=== PATIENT | male | born 1935 | race Caucasian/White ===

== ENCOUNTER 2017-07-03 21:31 | Emergency (ER) | payer OTHER, MEDICARE ==
[~2017-07-03] VITALS: Ht 167.6 cm; Wt 83.9 kg
[~2017-07-03 21:31] MED LIST: ASPIR 8181 MG PO; BYSTOLIC 5MG5 MG PO; COZAAR 100MG T100 MG PO; FENOFIBRATE54 MG PO; GLYBURIDE5 MG PO; LABETALOL HYDR100 MG PO; METFORMIN HCL500 MG PO; METFORMIN500 MG PO; METOPROLOL SUCC25 MG PO
[2017-07-03 22:03] LABS: ABSOLUTE BASOPHIL COUNT 0 /CUMM (0.0-0.2); ABSOLUTE EOSINOPHIL COUNT 0.2 /CUMM (0.0-0.7); ABSOLUTE GRANULOCYTE CT 3.5 /CUMM (1.4-6.5); ABSOLUTE LYMPH COUNT 1.6 /CUMM (1.2-3.4); ABSOLUTE MONOCYTE COUNT 0.6 /CUMM (0.10-0.60); BASOPHIL % 0.4 % (0.0-2.0); EOSINOPHIL % 3.6 % (0-5); HEMATOCRIT 41.5 % (42-52); MEAN CORPUSCULAR HGB 29.6 PG (27.0-31.0); MEAN CORPUSCULAR VOLUME 87.1 FL (80.0-94.0); MEAN PLATELET VOLUME 7.8 FL (7.4-10.4); PLATELET COUNT 166 /CUMM (130-400); RED BLOOD CELL CT 4.76 /CUMM (4.70-6.10); WHITE BLOOD CELL COUNT 5.9 /CUMM (4.8-10.8)
--- NOTE | 2017-07-03 22:50 | ED GI/GU/ABDOMINAL COMPLAINT ---
History of Present Illness General Chief Complaint: General Adult Stated Complaint: LLQ PAIN AND SOB SINCE EATING DINNER TONIGHT Source: patient, family, old records Exam Limitations: no limitations Vital Signs & Intake/Output Vital Signs & Intake/Output Vital Signs Date Time Temp Pulse Resp B/P B/P Pulse O2 O2 Flow FiO2 Mean Ox Delivery Rate 07/03 2252 104 16 107/54 97 Room Air 07/03 2157 96.7 84 20 159/78 96 Room Air ED Intake and Output 07/04 0000 07/03 1200 Intake Total Output Total Balance Patient 185 lb Weight Allergies Coded Allergies: NO KNOWN ALLERGIES (10/02/14) Reconcile Medications Fenofibrate 54 MG TABLET 2 PO QPM UNKNOWN (Reported) Glyburide 2.5 MG TABLET 2 PO BID diabetes (Reported) LABETALOL HCL (Labetalol Hydrochloride) 100 MG TAB 1 TAB PO BID htn Losartan (Cozaar) 100 MG TABLET 1 TAB PO DAILY BLOOD PRESSURE (Reported) METFORMIN HCL (Metformin) 500 MG TABLET 2 PO QPM DIABETES (Reported) Metformin Hydrochloride (Metformin HCl) 500 MG TAB 1 TAB PO QAM DIABETES ( Reported) Metoprolol Succinate 25 MG TAB.ER.24H 2 TAB PO DAILY HEART (Reported) Triage Note: PT TO ED C/O LLQ/LEFT SIDE PAIN ANS FEELING SOB SINCE EATING DINNER TONIGHT. "IT FELT LIKE GAS, BUT IT WASN'T GAS" AT [facility] FOR DINNER, DENIES CHEESE. "I'M HAVING AGINA TONIGHT" NO SL NITRO AT HOME. POINTS TO ESOPHAGUS AND EPIGASTRIC AREA "I SEEM TO GET IT WHEN I HAVE SPAGHETTI" Triage Nurses Notes Reviewed? yes Onset: Abrupt Duration: hour(s): (3), better, constant Timing: recent history Quality/Severity: aching, burning, cramping, moderate, sharpness Severity Numbers: 7 Location: left lower quadrant Radiation: no radiation Activities at Onset: eating (DINNER) Prior Abdominal Problems: none No Modifying Factors: none Associated Symptoms: DENIES HPI: 82-year-old male with history of AAA repair hypertension diabetes presents to the ER for evaluation complaining of left-sided abdominal pain that came on since eating dinner this evening. Contrary to triage note the patient denies any shortness of breath to myself. He denies any chest pain fevers chills. No urinary urgency frequency dysuria. The patient denies chest pain back pain. No history of similar symptoms in the past. He states that his blood sugars she has been checking regularly has been no higher than 140. No recent change in his medication. No black or bloody stools no nausea vomiting. (Bob Aguilera) Past History Travel History Traveled to [place] past 21 day No Medical History Any Pertinent Medical History? see below for history Neurological: NONE EENT: NONE Cardiovascular: aortic aneurysm, hypertension, hyperlipidemia Respiratory: NONE Gastrointestinal: peptic ulcer disease Hepatic: NONE Renal: NONE Musculoskeletal: NONE Psychiatric: NONE Endocrine: diabetes Blood Disorders: NONE Cancer(s): NONE ELECTROENCEPHALOGRAM TECHNOLOGIST/Reproductive: NONE History of MRSA: No History of VRE: No History of CDIFF: No Surgical History Surgical History: hernia repair-inguinal, AAA REPAIR. Psychosocial History Who do you live with Spouse Services at Home None What is your primary language Kinyarwanda Tobacco Use: Quit >30 days ago ETOH Use: denies use Illicit Drug Use: denies illicit drug use Family History Hx Contributory? No (Bob Aguilera) Review of Systems Review of Systems Constitutional: Reports: see HPI. Comments Review of systems: See HPI, All other systems negative. Constitutional, no chills no fever, HEENT: no sore throat no congestion, no ear pain Cardiovascular: No chest pain , no palpitation Skin: no rashes, no change in skin Respiratory: No dyspnea no cough no sputum GI: No nausea no vomiting, no diarrhea, : No dysuria No hematuria, no frequency Muscle skeletal: No joint pain, no back pain, Neurologic: , no headache Heme/endocrine: No bruising (Bob Aguilera) Physical Exam Physical Exam General Appearance: well developed/nourished, no apparent distress, alert, awake , comfortable Gastrointestinal: soft Comments: Well-developed well-nourished person in no acute distress HEENT: Normal EENT exam; PERRL, EOMI, HEAD is atraumatic. moist mucous membranes. Neck: Supple, normal range of motion Back: Nontender, no CVA tenderness. Full range of motion Cardiovascular: Regular rate and rhythms no murmurs Respiratory: No respiratory distress. Patient speaking in full complete sentences. Breath sounds clear to auscultation bilaterally: NO W/R/R Abdomen: Soft, nontender nondistended, no appreciable organomegaly. Normal bowel sounds. No rebound/guarding, No ascites. Extremity: No edema, full range of motion of extremities Neuro: Alert oriented x3, motor sensory normal, There were no obvious focal neurologic abnormalities. Skin: No appreciable rash on exposed skin, skin is warm and dry. Psych: Mood and affect is normal, memory and judgment is normal. Core Measures ACS in differential dx? Yes Sepsis Present: No Sepsis Focused Exam Completed? No (Nanci MCCLAIN,Bob) Progress Differential Diagnosis: AMI, appendicitis, biliary colic, bowel obstruction, colon cancer, cholecystitis, diverticulitis, gastritis, hepatitis, inflamm bowel dis, pancreatitis, peptic ulcer, PUD/GERD, pyelonephritis, SBO, UTI/pyelo Plan of Care: Orders Procedure Date/time Status LACTIC ACID 07/04 33 Complete TROPONIN LEVEL 07/04 29 Complete EKG 07/04 29 Active CULTURE,URINE 07/05 15 Active URINALYSIS 07/05 15 Complete Add-on Test (ER Only) 07/04 2203 Active TROPONIN LEVEL 07/04 2151 Complete LIPASE 07/03 2133 Complete LACTIC ACID 07/03 2133 Complete COMPREHENSIVE METABOLIC PANEL 07/03 2133 Complete CBC WITHOUT DIFFERENTIAL 07/03 2133 Complete EKG 07/03 2132 Active Laboratory Tests 07/04/17 0120: Troponin I < 0.01 07/04/17 0120: Lactic Acid 2.5 H 07/04/17 0017: Urine Color YEL, Urine Clarity HAZY H, Urine pH 6.0, Ur Specific [place] 1.010, Urine Protein NEG, Urine Ketones NEG, Urine Nitrite NEG, Urine Bilirubin NEG, Urine Urobilinogen 0.2, Ur Leukocyte Esterase NEG, Ur Microscopic SEDIMENT EXAMINED, Urine RBC 15-25 H, Urine WBC RARE, Urine Crystals 1+ UR AC H, Urine Bacteria FEW H, Urine Mucus FEW, Urine Hemoglobin LARGE H, Urine Glucose >= 1000 H 07/03/172151: Anion Gap 13, Estimated GFR > 60, BUN/Creatinine Ratio 26.0 H, Glucose 245 H, Lactic Acid 3.1 H, Calcium 9.3, Total Bilirubin 0.5, AST 26, ALT 39, Alkaline Phosphatase 87, Troponin I < 0.01, Total Protein 7.3, Albumin 4.6, Globulin 2.7, Albumin/Globulin Ratio 1.7, Lipase 187, CBC w Diff NO MAN DIFF REQ, RBC 4.76, MCV 87.1, MCH 29.6, MCHC 34.0, RDW 13.0, MPV 7.8, Gran % 59.0, Lymphocytes % 27.4, Monocytes % 9.6 H, Eosinophils % 3.6, Basophils % 0.4, Absolute Granulocytes 3.5, Absolute Lymphocytes 1.6, Absolute Monocytes 0.6, Absolute Eosinophils 0.2, Absolute Basophils 0 Microbiology 07/04 0017 URINE ROUT: Urine Culture - RECD Labs ordered old records reviewed CAT scan ordered 2350 discussed with the patient and family His CAT scan results-he has no urinary complaints he will be able to provide a sample IV fluids are running. Patient reports improvement symptoms this time denies any pain. Case discussed with Dr. Robison who agrees with plan -we'll repeat a troponin and lactic acid at 12:30 0050 patient resting in no acute distress pending repeat lactic acid troponin EKG he denies any pain at this time I discussed with him once again is CAT scan findings and urinalysis he denies history of kidney stones in the past, advised need for follow-up with urologist Dr. Roche. 100 case discussed with and signed out to Dr. Robison pending repeat labs Diagnostic Imaging: Viewed by Me: CT Scan. Discussed w/RAD: CT Scan. Radiology Impression: PATIENT: ALEXEI WAITE PRESENT AGE: 82 PATIENT ACCOUNT NO: [id number] : 35 LOCATION: [facility] ORDERING PHYSICIAN: Bob MCCLAIN SERVICE DATE: 07/03/17 EXAM TYPE: CAT - CT ABD & PELVIS W IV CONTRAST EXAMINATION: CT ABDOMEN AND PELVIS WITH CONTRAST CLINICAL INFORMATION: Left lower quadrant abdominal pain. Nausea and vomiting. COMPARISON: CT scan abdomen pelvis 07/08/2013 TECHNIQUE: Multidetector volumetric imaging was performed of the abdomen and pelvis following IV administration of 95 mL of Optiray 320 intravenous contrast. Sagittal and coronal reformatted images were obtained on the technologist's workstation. DLP: 482.80 mGy-cm FINDINGS: LUNG BASES: The visualized lung bases are unremarkable. LIVER, GALLBLADDER, AND BILIARY TREE: There is diffuse low attenuation of liver parenchyma due to fatty change. There is no focal liver lesion. There is no intrahepatic bile duct dilatation. The gallbladder is unremarkable with no evidence of radiopaque gallstones, gallbladder wall thickening, or obvious pericholecystic inflammatory changes. PANCREAS: Unremarkable. SPLEEN: Unremarkable. ADRENAL GLANDS: Unremarkable. KIDNEYS AND URETERS: There is hypodensity in the right and left renal pelvis. A hypodensity in the right kidney is at the lower pole and is unchanged since CAT scan of 09/24/2013 consistent with a parapelvic cyst. There is no stone in the right kidney and no hydronephrosis of the right kidney. On the left there is mild dilatation of renal pelvis and calyces to the ureteropelvic junction. There is no hydroureter. There is a subtle amount of edema and fluid around the left kidney and the left ureter. There is no renal or ureteral calculus. BLADDER: Unremarkable. GASTROINTESTINAL TRACT: There is diverticulosis of left colon sigmoid. No diverticulitis. There is no acute change of the bowel. No bowel obstruction. No bowel wall thickening or edema. Moderate volume of stool throughout the colon. The appendix is not seen. There is no inflammation the mesentery and right lower quadrant. The small bowel loops are unremarkable. ABDOMINAL WALL: There is bilateral fat-containing inguinal hernia. On the right side measures 1.6 cm. On the left side measures 3 cm. LYMPH NODES: Normal. VASCULAR: There is been placement of an aortic bifemoral stent graft in the distal aortic aneurysm. No evidence for aneurysmal leak. 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 There is mild hydronephrosis of left kidney with edema in the perinephric fat around the left ureter there is no dilatation of the ureter and there is no renal or ureteral calculus. 2. There is diverticulosis of the left colon sigmoid but no diverticulitis. No acute change of the bowel. DICTATED BY: Stevo Varma MD DATE/TIME DICTATED:07/03/172333 APARTMENT RENTAL AGENT:YONATHAN DATE/TIME TRANSCRIBED:07/03/172333 CONFIDENTIAL, DO NOT COPY WITHOUT APPROPRIATE AUTHORIZATION. <Electronically signed in Other Vendor System> SIGNED BY: Stevo Varma MD 07/03/17 8924 Initial ED EKG: normal axis, normal sinus rhythm, nonspecific ST T wave chg Prior EKG: unchanged Hand-Off Endorsed To: Enriqueta STREETER,Joshua Marx Endorsed Time: 99 Pending: EKG, labs (Bob Aguilera) Departure Departure Disposition: HOME OR SELF CARE Condition: Stable Clinical Impression Primary Impression: Abdominal pain Secondary Impressions: Kidney stone Referrals: Sonia STREETER,Luis Manuel Marx (PCP/Family) Nilesh Roche MD Additional Instructions: Follow-up with urologist dr roche as well as your primary care physician tomorrow. [place] diet clear liquids and advance as tolerated.. return with any concerns Departure Forms: Customer Survey General Discharge Information (Bob Aguilera) PA/PIE DOUGH ROLLER Co-Sign Statement Statement: ED Attending supervision documentation- [x] I saw and evaluated the patient. I have also reviewed all the pertinent lab results and diagnostic results. I agree with the findings and the plan of care as documented in the PA's/PIE DOUGH ROLLER's documentation. pt feels well in ED at discharge.... follow up lactate is 2.5... to my exam he has a comletely nontender abdomen. ct scan and labs otherwise benign... i discussed this at great length with patient. He is feeling well, without pain, nausea, vomiting. He would like to go home. I encouraged close follow up. His presentation is most consistent with a passed kidney stone. [] I have reviewed the ED Record and agree with the PA's/PIE DOUGH ROLLER's documentation. [] Additions or exceptions (if any) to the PAs/PIE DOUGH ROLLER's note and plan are summarized below: [] (Enriqueta STREETER,Joshua Marx)
--- NOTE | 2017-07-03 23:45 | CT SCAN REPORT ---
EXAMINATION: CT ABDOMEN AND PELVIS WITH CONTRAST CLINICAL INFORMATION: Left lower quadrant abdominal pain. Nausea and vomiting. COMPARISON: CT scan abdomen pelvis 07/08/2013 TECHNIQUE: Multidetector volumetric imaging was performed of the abdomen and pelvis following IV administration of 95 mL of Optiray 320 intravenous contrast. Sagittal and coronal reformatted images were obtained on the technologist's workstation. DLP: 482.80 mGy-cm FINDINGS: LUNG BASES: The visualized lung bases are unremarkable. LIVER, GALLBLADDER, AND BILIARY TREE: There is diffuse low attenuation of liver parenchyma due to fatty change. There is no focal liver lesion. There is no intrahepatic bile duct dilatation. The gallbladder is unremarkable with no evidence of radiopaque gallstones, gallbladder wall thickening, or obvious pericholecystic inflammatory changes. PANCREAS: Unremarkable. SPLEEN: Unremarkable. ADRENAL GLANDS: Unremarkable. KIDNEYS AND URETERS: There is hypodensity in the right and left renal pelvis. A hypodensity in the right kidney is at the lower pole and is unchanged since CAT scan of 09/24/2013 consistent with a parapelvic cyst. There is no stone in the right kidney and no hydronephrosis of the right kidney. On the left there is mild dilatation of renal pelvis and calyces to the ureteropelvic junction. There is no hydroureter. There is a subtle amount of edema and fluid around the left kidney and the left ureter. There is no renal or ureteral calculus. BLADDER: Unremarkable. GASTROINTESTINAL TRACT: There is diverticulosis of left colon sigmoid. No diverticulitis. There is no acute change of the bowel. No bowel obstruction. No bowel wall thickening or edema. Moderate volume of stool throughout the colon. The appendix is not seen. There is no inflammation the mesentery and right lower quadrant. The small bowel loops are unremarkable. ABDOMINAL WALL: There is bilateral fat-containing inguinal hernia. On the right side measures 1.6 cm. On the left side measures 3 cm. LYMPH NODES: Normal. VASCULAR: There is been placement of an aortic bifemoral stent graft in the distal aortic aneurysm. No evidence for aneurysmal leak. 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 There is mild hydronephrosis of left kidney with edema in the perinephric fat around the left ureter there is no dilatation of the ureter and there is no renal or ureteral calculus. 2. There is diverticulosis of the left colon sigmoid but no diverticulitis. No acute change of the bowel.
[2017-07-04 02:20] VITALS: BP 109/58
[2017-07-05] MEDS ORDERED: AMLODIPINE BESY10 M1 PO (20:06)
[2017-07-05] MEDS ORDERED: TIMOLOL MALEATE5 M4 OPH (20:09)
[2017-07-05] MEDS ORDERED: GLYBURIDE2.5 M1 PO (20:10)
[2017-07-05] MEDS ORDERED: AMARYL1 M1 PO (20:19)
== END 2017-07-04 02:20 ==
LOC: ERH 21:31
PROVIDERS: Physician Assistant Medical
DX: N20.0 Calculus of kidney (principal)
CPT/HCPCS: 74177; 81001; 87086; 93005; 93010; 96374; 96375; J0131

== ENCOUNTER 2017-07-05 13:17 | Emergency (ER) | payer OTHER, MEDICARE ==
[~2017-07-05] VITALS: Ht 168.9 cm; Wt 83.9 kg
[2017-07-05 14:08] LABS: BASOPHIL % 0.3 % (0.0-2.0)
[2017-07-05 14:35] LABS: ABSOLUTE BASOPHIL COUNT 0 /CUMM (0.0-0.2); ABSOLUTE EOSINOPHIL COUNT 0.2 /CUMM (0.0-0.7); ABSOLUTE LYMPH COUNT 1.4 /CUMM (1.2-3.4); ABSOLUTE MONOCYTE COUNT 0.6 /CUMM (0.10-0.60); EOSINOPHIL % 3.1 % (0-5); GRANULOCYTE % 68.7 % (42.2-75.2); MEAN CORPUSCULAR HGB 29.3 PG (27.0-31.0); MEAN CORPUSCULAR HGB CONC 33.3 G/DL (33.0-37.0); MEAN CORPUSCULAR VOLUME 88.1 FL (80.0-94.0); MEAN PLATELET VOLUME 8.1 FL (7.4-10.4); PLATELET COUNT 182 /CUMM (130-400); RED BLOOD CELL CT 4.89 /CUMM (4.70-6.10); WHITE BLOOD CELL COUNT 7.3 /CUMM (4.8-10.8)
--- NOTE | 2017-07-05 19:21 | ED GI/GU/ABDOMINAL COMPLAINT ---
History of Present Illness General Chief Complaint: General Adult Stated Complaint: LOWER BACK PAIN/SOB Source: patient Exam Limitations: no limitations Vital Signs & Intake/Output Vital Signs & Intake/Output Vital Signs Date Time Temp Pulse Resp B/P B/P Pulse O2 O2 Flow FiO2 Mean Ox Delivery Rate 07/05 2144 98.8 67 16 166/90 95 Room Air 07/05 1952 98.0 68 18 168/70 97 Room Air 07/05 1853 Room Air 07/05 1607 97.5 71 20 168/91 97 Room Air 07/05 1343 96.0 70 18 166/84 96 Room Air Room Air ED Intake and Output 07/06 0000 07/05 1200 Intake Total Output Total Balance Patient 185 lb Weight Weight Reported by Patient Measurement Method Allergies Coded Allergies: NO KNOWN ALLERGIES (10/02/14) Triage Note: PT TO ED WITH C/O LEFT FLANK PAIN, SEEN HERE FOR THE SAME 2 DAYS AGO, DX WITH KIDNEY STONE "THEY SAID I PASSED IT, BUT THE PAIN IS WORSE". Triage Nurses Notes Reviewed? yes Onset: Abrupt Duration: day(s): (2-3), changing over time, continues in ED, getting worse Timing: single episode today Quality/Severity: dullness, fullness Severity Numbers: 8 Location: left flank, left lower quadrant Radiation: LLQ Activities at Onset: none Prior Abdominal Problems: similar symptoms Past Sexual History: Unobtainable at this time No Modifying Factors: none Modifying Factors: Worsens With: movement, palpation. Associated Symptoms: abdominal pain, nausea/vomiting HPI: 82-year-old male past medical history of aortic aneurysm, hypertension, diabetes , kidney stones presents for evaluation of left flank pain. Patient states symptoms are present for the past 2-3 days. He was seen in the ER last night and was told that he may have passed a kidney stone. Patient states that his pain is significantly improved so he was discharged and the pain started again today. The pain is located in the left flank radiating to the left lower quadrant. Described as fullness and dullness. Worse with palpation and movement. Associated with nausea no vomiting. No fevers no difficulty urinating no chest pain shortness of breath or fever. He is not taking any medicine for the symptoms currently. (John MCCLAIN,Malick) Reconcile Medications Amlodipine Besylate 10 MG TABLET 10 MG PO DAILY HTN (Reported) Fenofibrate 54 MG TABLET 2 PO QPM UNKNOWN (Reported) Glimepiride (Amaryl) 1 MG TABLET 2 MG PO BID DIEBETIES (Reported) Glyburide 2.5 MG TABLET 2 PO BID diabetes (Reported) Glyburide 2.5 MG TABLET 2 MG PO BID DIABETES (Reported) LABETALOL HCL (Labetalol Hydrochloride) 100 MG TAB 1 TAB PO BID htn Losartan (Cozaar) 100 MG TABLET 1 TAB PO DAILY BLOOD PRESSURE (Reported) METFORMIN HCL (Metformin) 500 MG TABLET 2 PO QPM DIABETES (Reported) Metformin Hydrochloride (Metformin HCl) 500 MG TAB 1 TAB PO QAM DIABETES ( Reported) Metoprolol Succinate 25 MG TAB.ER.24H 2 TAB PO DAILY HEART (Reported) Timolol Maleate 0.5 % DROPS (Unknown Dose) OPH 1 DROP GLAUCOMA (Reported) (Enriqueta STREETER,Joshua Marx) Past History Travel History Traveled to [place] past 21 day No Medical History Any Pertinent Medical History? see below for history Neurological: NONE EENT: NONE Cardiovascular: aortic aneurysm, hypertension, hyperlipidemia Respiratory: NONE Gastrointestinal: peptic ulcer disease Hepatic: NONE Renal: KIDNEY STONES Musculoskeletal: NONE Psychiatric: NONE Endocrine: diabetes Blood Disorders: NONE Cancer(s): NONE STATION SUPERINTENDENT/Reproductive: NONE History of MRSA: No History of VRE: No History of CDIFF: No Surgical History Surgical History: hernia repair-inguinal, AAA REPAIR. Psychosocial History Who do you live with Spouse Services at Home None What is your primary language Montenegrin Tobacco Use: Never used ETOH Use: denies use Illicit Drug Use: denies illicit drug use Family History Hx Contributory? No (Malick Puente) Review of Systems Review of Systems Constitutional: Reports: no symptoms. EENTM: Reports: no symptoms. Respiratory: Reports: no symptoms. Cardiovascular: Reports: no symptoms. GI: Reports: see HPI, abdominal pain, nausea. Genitourinary: Reports: no symptoms. Musculoskeletal: Reports: no symptoms. Skin: Reports: no symptoms. Neurological/Psychological: Reports: no symptoms. Hematologic/Endocrine: Reports: no symptoms. Immunologic/Allergic: Reports: no symptoms. All Other Systems: Reviewed and Negative (Malick Puente) Physical Exam Physical Exam General Appearance: well developed/nourished, no apparent distress, alert, awake Head: atraumatic, normal appearance Eyes: Bilateral: normal appearance, PERRL, EOMI. Ears, Nose, Throat, Mouth: hearing grossly normal, moist mucous membrane Neck: normal inspection, supple, full range of motion Respiratory: normal breath sounds, chest non-tender, no respiratory distress, lungs clear Cardiovascular: regular rate/rhythm, normal peripheral pulses Peripheral Pulses: 2+ radial (R), 2+ radial (L) Gastrointestinal: normal bowel sounds, soft, no organomegaly, tenderness (LEFT FLANK ) Back: normal inspection, normal range of motion, no vertebral tenderness, NO CVAT Extremities: normal range of motion Neurologic/Psych: no motor/sensory deficits, awake, alert, oriented x 3, normal gait Skin: intact, normal color, warm/dry Core Measures ACS in differential dx? No Sepsis Present: No Sepsis Focused Exam Completed? No (John MCCLAIN,Mailck) Progress Differential Diagnosis: AAA, AMI, appendicitis, biliary colic, bowel obstruction , colon cancer, cholecystitis, diverticulitis, gastritis, inflamm bowel dis, pancreatitis, peptic ulcer, PUD/GERD, pyelonephritis, SBO, ureterolithiasis, urinary retention, urethritis, UTI/pyelo Plan of Care: Orders Procedure Date/time Status Add-on Test (ER Only) 07/06 1851 Active Add-on Test (ER Only) 07/05 1850 Active EKG 07/05 185 Active TROPONIN LEVEL 07/05 1350 Complete LACTIC ACID 07/05 1350 Complete URINALYSIS 07/05 1348 Complete COMPREHENSIVE METABOLIC PANEL 07/05 1348 Complete CBC WITHOUT DIFFERENTIAL 07/05 1348 Complete Laboratory Tests 07/05/17 1355: Urine Color YEL, Urine Clarity CLEAR, Urine pH 6.0, Ur Specific Etters 1.025, Urine Protein NEG, Urine Ketones NEG, Urine Nitrite NEG, Urine Bilirubin NEG, Urine Urobilinogen 0.2, Ur Leukocyte Esterase NEG, Ur Microscopic SEDIMENT EXAMINED, Urine RBC RARE, Urine Hemoglobin SMALL H, Urine Glucose >=1000 H 07/05/17 1350: Anion Gap 15, Estimated GFR > 60, BUN/Creatinine Ratio 20.0, Glucose 189 H, Lactic Acid 1.7, Calcium 9.6, Total Bilirubin 0.7, AST 22, ALT 35, Alkaline Phosphatase 55, Troponin I < 0.01, Total Protein 7.4, Albumin 4.5, Globulin 2.9, Albumin/Globulin Ratio 1.6, CBC w Diff NO MAN DIFF REQ, RBC 4.89, MCV 88.1, MCH 29.3, MCHC 33.3, RDW 13.0, MPV 8.1, Gran % 68.7, Lymphocytes % 19.4 L, Monocytes % 8.5, Eosinophils % 3.1, Basophils % 0.3, Absolute Granulocytes 5.0, Absolute Lymphocytes 1.4, Absolute Monocytes 0.6, Absolute Eosinophils 0.2, Absolute Basophils 0 Patient seen and evaluated. He has left flank pain for the past couple days. He had a contrast CT yesterday that did not show any acute findings. His symptoms got better and then worsened again the pain is located in the left flank rated the left lower quadrant. Associated with nausea. No diarrhea no chest pain shortness of breath no fevers. Basic blood work was obtained does not show any signs of infection in the urine negative white blood cell count negative lactic acid any function within normal limits. A noncontrast CT was ordered which showed an abnormality at the right ureter radiology requested a CT scan with delayed IV contrast. The CT scan showed an abnormality of the left kidney/ureter detailed below. There is edema and fluid around the left kidney in the perinephric fat. There is mild dilatation of the left renal calyces but most of the lucency in the left renal pelvis is due to a parapelvic cyst. There is suggestion of a isointense filling defect at the ureteropelvic junction with edema around the UPJ. The distal ureter is decompressed. There is no stone in the kidney or ureter. All blood work is within normal limits. Patient was medicated with 50 mg of IV Toradol and reports complete resolution of his pain. He is been able tolerate fluids here. No vomiting. A call was placed out to on-call urologist however patient did not want to wait for them to call back and requested discharge before I was able to speak with the urologist. Patient was given contact information for Dr. Roche. Patient states that he haS his is on urologist that he will follow-up with. Instructed patient that it is very important that he follow up on this right away that he should call tomorrow for aN appointment. Discussed return precautions in detail. Patient agrees the plan case discussed with Dr. Robison he agrees. Diagnostic Imaging: Viewed by Me: CT Scan. Discussed w/RAD: CT Scan. Radiology Impression: PATIENT: ALEXEI WAITE PRESENT AGE: 82 PATIENT ACCOUNT NO: [id number] : 35 LOCATION: [facility] ORDERING PHYSICIAN: Malick MCCLAIN SERVICE DATE: 07/05/17 EXAM TYPE: CAT - CT ABD & PELVIS W/O IV CONTRAS EXAMINATION: CT ABDOMEN AND PELVIS WITHOUT CONTRAST CLINICAL INFORMATION: Left flank pain for 3 days. Left lower quadrant pain. COMPARISON: CT abdomen pelvis 07/03/2017 TECHNIQUE: Multidetector volumetric imaging was performed from the superior aspect of the liver through the pubic symphysis. Sagittal and coronal reformatted images were obtained on the technologist's workstation. DLP: 585.19 mGy-cm FINDINGS: LUNG BASES: The visualized lung bases are unremarkable. LIVER, GALLBLADDER, AND BILIARY TREE: There is diffuse low attenuation of liver parenchyma due to fatty change. No focal liver lesion. No intrahepatic bile duct dilatation. The gallbladder is unremarkable with no evidence of radiopaque gallstones, gallbladder wall thickening, or obvious pericholecystic inflammatory changes. PANCREAS: Unremarkable. SPLEEN: Unremarkable. ADRENAL GLANDS: Unremarkable. KIDNEYS AND URETERS: Left kidney: Again seen is hypodensity of the left renal pelvis with distention of the renal pelvis and calyces to the ureteropelvic junction. There is no hydroureter. There is edema around the kidney and fluid around the kidney and around the left ureter extending down into the pelvis. This is similar to the CAT scan of 07/03/2017. No renal or ureteral calculus evident. Left kidney: There is a parapelvic cyst at the inferior pole. No hydronephrosis. No renal or ureteral calculus. BLADDER: Unremarkable. GASTROINTESTINAL TRACT: There is diverticulosis of left colon and the sigmoid. No diverticulitis. There is no acute change of the bowel. No bowel obstruction. No bowel wall thickening or edema. There is a moderate volume of stool throughout the colon. The appendix is not seen. There is no inflammation of the mesentery in the right lower quadrant. The small bowel loops are unremarkable. ABDOMINAL WALL: There are bilateral fat- containing inguinal hernias. Hernia is larger on the left than the right side. Measures 3 cm on the left. Measures about 1.6 cm on the right. LYMPH NODES: Normal. VASCULAR: Patient has an aortic bifemoral stent graft in place with the distal abdominal aortic aneurysm. No evidence of aneurysmal leak. No retroperitoneal hematoma. PELVIC VISCERA: Prostate measures 4 cm transverse by small coarse calcifications. OSSEOUS STRUCTURES: There is degenerative spondylosis of the spine with multilevel endplate spurs of the vertebrae and facet joint arthrosis at the lower lumbar spine. There is a subcutaneous lipoma of the right posterior lumbar area. This measures 9 x 2.6 x 7 cm superior inferior. Coronal image 100. IMPRESSION: 1. Persistent mild hydronephrosis of left kidney with edema in the perinephric fat around the kidney and extending down along the ureter. No hydroureter. No renal or ureteral calculi. No change since prior CAT scan 07/03/2017. Further evaluation of the left renal collecting system could be performed with delayed postcontrast CT images of the abdomen and pelvis, CT urogram. Alternatively a left-sided retrograde ureterogram exam may be helpful. 2. Diverticulosis of left colon and sigmoid but no diverticulitis. No acute change of the bowel. This critical result was discussed with on 07/05/2017, 8:00 PM and it was ascertained that the content and urgency of the report was understood at the time of direct communication. DICTATED BY: Stevo Varma MD DATE/TIME DICTATED:07/05/171949 MINING DETAIL DRAFTSPERSON:YONATHAN DATE/TIME TRANSCRIBED:07/05/171949 CONFIDENTIAL, DO NOT COPY WITHOUT APPROPRIATE AUTHORIZATION. <Electronically signed in Other Vendor System> SIGNED BY: Stevo Varma MD 07/05/172057, PATIENT: ALEXEI WAITE PRESENT AGE: 82 PATIENT ACCOUNT NO: [id number] : 35 LOCATION: [facility] ORDERING PHYSICIAN: Malick MCCLAIN SERVICE DATE: 07/05/17 EXAM TYPE: CAT - CT ABD & PELVIS W IV CONTRAST EXAMINATION: CT ABDOMEN AND PELVIS WITH CONTRAST CLINICAL INFORMATION: Abnormality of the left kidney on prior CAT scan study. A delayed contrast CT abdomen pelvis was requested for further assessment. Patient has lower left quadrant abdominal pain. COMPARISON: CT scan abdomen pelvis 07/03/2017, 07/05/2017. TECHNIQUE: Multidetector volumetric imaging was performed of the abdomen and pelvis following IV administration of 95 mL of Optiray 320 intravenous contrast. Images were obtained only 10 minutes after the injection. Patient had a previous contrast study on 07/03/2017 and a noncontrast study earlier today. Sagittal and coronal reformatted images were obtained on the technologist's workstation. DLP: 664.53 mGy-cm FINDINGS: LUNG BASES: The visualized lung bases are unremarkable. LIVER, GALLBLADDER, AND BILIARY TREE: There is diffuse low attenuation of liver parenchyma due to fatty change. There is no focal liver lesion. There is no intrahepatic bile duct dilatation. The gallbladder is unremarkable with no evidence of radiopaque gallstones, gallbladder wall thickening, or obvious pericholecystic inflammatory changes. PANCREAS: Unremarkable. SPLEEN: Unremarkable. ADRENAL GLANDS: Unremarkable. ABDOMINAL WALL: KIDNEYS AND URETERS: RIGHT KIDNEY: The right kidney and ureter are normal. There is a parapelvic cyst in the lower pole of the right kidney. LEFT KIDNEY: There is normal enhancement of the cortex of the kidney. There is hypodensity in the left renal pelvis due to parapelvic cysts. There is slight fullness of the calyces. The renal pelvis does not opacify. There is hypodensity at the ureterovesical junction and a suggestion of a filling defect at the ureterovesical junction, coronal image 55, it is isointense. There is edema around the collecting system and proximal ureter at this area. The ureter distal to the ureterovesical junction is not opacified. It can be tracked down into the bladder without dilatation. The ureter tracks along the pararenal fat down into the pelvis to the ureterovesical junction. There is a left-sided inguinal hernia. The coronal fat extends in continuity from around the kidney down into this hernia through the left inguinal ring. The hernia distal to the inguinal ring measuring 11 cm. The hernia measures approximately 4 cm transverse. BLADDER: Unremarkable. GASTROINTESTINAL TRACT: There is diverticulosis of the left colon and sigmoid. There is no diverticulitis. There is no bowel wall thickening or edema. Moderate volume of stool in the colon. The appendix is not seen. Small bowel loops are unremarkable. There is a small hiatal hernia. LYMPH NODES: Normal. VASCULAR: Patient has placement of a aortic bifemoral stent graft with distal abdominal aortic aneurysm. No evidence for aneurysmal leak. PELVIC VISCERA: Prostate measures 4 cm with coarse calcifications. OSSEOUS STRUCTURES: Multilevel degenerative spondylosis of spine. IMPRESSION: 1. There is edema and fluid around the left kidney in the perinephric fat. There is mild dilatation of the left renal calyces but most of the lucency in the left renal pelvis is due to a parapelvic cyst. There is suggestion of a isointense filling defect at the ureteropelvic junction with edema around the UPJ. The distal ureter is decompressed. There is no stone in the kidney or ureter. A retrograde ureterogram can be considered for further assessment. Compared with urinalysis. 2. The left inguinal hernia contains fat extending from the pararenal fat extending inferiorly into the hernia. This critical result was discussed with Dr. Lopez on 07/05/2017, 9:20 PM and it was ascertained that the content and urgency of the report was understood at the time of direct communication. DICTATED BY: Stevo Varma MD DATE/TIME DICTATED:07/05/172104 MINING DETAIL DRAFTSPERSON :YONATHAN DATE/TIME TRANSCRIBED:07/05/172104 Initial ED EKG: normal sinus rhythm, FIRST-DEGREE a-v BLOCK, LAFB (Malick Puente) Departure Departure Disposition: HOME OR SELF CARE Condition: Stable Clinical Impression Primary Impression: Left flank pain Referrals: Sonia STREETER,Luis Manuel Marx (PCP/Family) Nilesh Roche MD Additional Instructions: Make a follow-up appointment with Dr. Roche urologist as soon as possible. It is very important that you follow-up with a urologist. Call tomorrow for an appointment. Use Tylenol 1000 mg every 8 hours as needed for pain. Monitor your symptoms return with fever, worsening pain, unable to urinate or any other concerns. Departure Forms: Customer Survey General Discharge Information (Malick Puente) PA/PROFESSOR OF ENVIRONMENTAL SCIENCE Co-Sign Statement Statement: ED Attending supervision documentation- [x] I saw and evaluated the patient. I have also reviewed all the pertinent lab results and diagnostic results. I agree with the findings and the plan of care as documented in the PA's/PROFESSOR OF ENVIRONMENTAL SCIENCE's documentation. 07/05/17, 19:55.... pt examined by me... minimal tenderness at left flank. no rebound. no guarding. otherwise benign exam. [] I have reviewed the ED Record and agree with the PA's/PROFESSOR OF ENVIRONMENTAL SCIENCE's documentation. [] Additions or exceptions (if any) to the PAs/PROFESSOR OF ENVIRONMENTAL SCIENCE's note and plan are summarized below: [] (Enriqueta STREETER,Joshua Marx) (Enriqueta STREETER,Joshua Marx)
[2017-07-05] MEDS ORDERED: AMLODIPINE BESY10 M1 PO (20:06)
[2017-07-05] MEDS ORDERED: TIMOLOL MALEATE5 M4 OPH (20:09)
[2017-07-05] MEDS ORDERED: GLYBURIDE2.5 M1 PO (20:10)
[2017-07-05] MEDS ORDERED: AMARYL1 M1 PO (20:19)
--- NOTE | 2017-07-05 20:58 | CT SCAN REPORT ---
EXAMINATION: CT ABDOMEN AND PELVIS WITHOUT CONTRAST CLINICAL INFORMATION: Left flank pain for 3 days. Left lower quadrant pain. COMPARISON: CT abdomen pelvis 07/03/2017 TECHNIQUE: Multidetector volumetric imaging was performed from the superior aspect of the liver through the pubic symphysis. Sagittal and coronal reformatted images were obtained on the technologist's workstation. DLP: 585.19 mGy-cm FINDINGS: LUNG BASES: The visualized lung bases are unremarkable. LIVER, GALLBLADDER, AND BILIARY TREE: There is diffuse low attenuation of liver parenchyma due to fatty change. No focal liver lesion. No intrahepatic bile duct dilatation. The gallbladder is unremarkable with no evidence of radiopaque gallstones, gallbladder wall thickening, or obvious pericholecystic inflammatory changes. PANCREAS: Unremarkable. SPLEEN: Unremarkable. ADRENAL GLANDS: Unremarkable. KIDNEYS AND URETERS: Left kidney: Again seen is hypodensity of the left renal pelvis with distention of the renal pelvis and calyces to the ureteropelvic junction. There is no hydroureter. There is edema around the kidney and fluid around the kidney and around the left ureter extending down into the pelvis. This is similar to the CAT scan of 07/03/2017. No renal or ureteral calculus evident. Left kidney: There is a parapelvic cyst at the inferior pole. No hydronephrosis. No renal or ureteral calculus. BLADDER: Unremarkable. GASTROINTESTINAL TRACT: There is diverticulosis of left colon and the sigmoid. No diverticulitis. There is no acute change of the bowel. No bowel obstruction. No bowel wall thickening or edema. There is a moderate volume of stool throughout the colon. The appendix is not seen. There is no inflammation of the mesentery in the right lower quadrant. The small bowel loops are unremarkable. ABDOMINAL WALL: There are bilateral fat-containing inguinal hernias. Hernia is larger on the left than the right side. Measures 3 cm on the left. Measures about 1.6 cm on the right. LYMPH NODES: Normal. VASCULAR: Patient has an aortic bifemoral stent graft in place with the distal abdominal aortic aneurysm. No evidence of aneurysmal leak. No retroperitoneal hematoma. PELVIC VISCERA: Prostate measures 4 cm transverse by small coarse calcifications. OSSEOUS STRUCTURES: There is degenerative spondylosis of the spine with multilevel endplate spurs of the vertebrae and facet joint arthrosis at the lower lumbar spine. There is a subcutaneous lipoma of the right posterior lumbar area. This measures 9 x 2.6 x 7 cm superior inferior. Coronal image 100. IMPRESSION: 1. Persistent mild hydronephrosis of left kidney with edema in the perinephric fat around the kidney and extending down along the ureter. No hydroureter. No renal or ureteral calculi. No change since prior CAT scan 07/03/2017. Further evaluation of the left renal collecting system could be performed with delayed postcontrast CT images of the abdomen and pelvis, CT urogram. Alternatively a left-sided retrograde ureterogram exam may be helpful. 2. Diverticulosis of left colon and sigmoid but no diverticulitis. No acute change of the bowel. This critical result was discussed with on 07/05/2017, 8:00 PM and it was ascertained that the content and urgency of the report was understood at the time of direct communication.
[2017-07-05 21:44] VITALS: BP 166/90
--- NOTE | 2017-07-05 22:12 | CT SCAN REPORT ---
EXAMINATION: CT ABDOMEN AND PELVIS WITH CONTRAST CLINICAL INFORMATION: Abnormality of the left kidney on prior CAT scan study. A delayed contrast CT abdomen pelvis was requested for further assessment. Patient has lower left quadrant abdominal pain. COMPARISON: CT scan abdomen pelvis 07/03/2017, 07/05/2017. TECHNIQUE: Multidetector volumetric imaging was performed of the abdomen and pelvis following IV administration of 95 mL of Optiray 320 intravenous contrast. Images were obtained only 10 minutes after the injection. Patient had a previous contrast study on 07/03/2017 and a noncontrast study earlier today. Sagittal and coronal reformatted images were obtained on the technologist's workstation. DLP: 664.53 mGy-cm FINDINGS: LUNG BASES: The visualized lung bases are unremarkable. LIVER, GALLBLADDER, AND BILIARY TREE: There is diffuse low attenuation of liver parenchyma due to fatty change. There is no focal liver lesion. There is no intrahepatic bile duct dilatation. The gallbladder is unremarkable with no evidence of radiopaque gallstones, gallbladder wall thickening, or obvious pericholecystic inflammatory changes. PANCREAS: Unremarkable. SPLEEN: Unremarkable. ADRENAL GLANDS: Unremarkable. ABDOMINAL WALL: KIDNEYS AND URETERS: RIGHT KIDNEY: The right kidney and ureter are normal. There is a parapelvic cyst in the lower pole of the right kidney. LEFT KIDNEY: There is normal enhancement of the cortex of the kidney. There is hypodensity in the left renal pelvis due to parapelvic cysts. There is slight fullness of the calyces. The renal pelvis does not opacify. There is hypodensity at the ureterovesical junction and a suggestion of a filling defect at the ureterovesical junction, coronal image 55, it is isointense. There is edema around the collecting system and proximal ureter at this area. The ureter distal to the ureterovesical junction is not opacified. It can be tracked down into the bladder without dilatation. The ureter tracks along the pararenal fat down into the pelvis to the ureterovesical junction. There is a left-sided inguinal hernia. The coronal fat extends in continuity from around the kidney down into this hernia through the left inguinal ring. The hernia distal to the inguinal ring measuring 11 cm. The hernia measures approximately 4 cm transverse. BLADDER: Unremarkable. GASTROINTESTINAL TRACT: There is diverticulosis of the left colon and sigmoid. There is no diverticulitis. There is no bowel wall thickening or edema. Moderate volume of stool in the colon. The appendix is not seen. Small bowel loops are unremarkable. There is a small hiatal hernia. LYMPH NODES: Normal. VASCULAR: Patient has placement of a aortic bifemoral stent graft with distal abdominal aortic aneurysm. No evidence for aneurysmal leak. PELVIC VISCERA: Prostate measures 4 cm with coarse calcifications. OSSEOUS STRUCTURES: Multilevel degenerative spondylosis of spine. IMPRESSION: 1. There is edema and fluid around the left kidney in the perinephric fat. There is mild dilatation of the left renal calyces but most of the lucency in the left renal pelvis is due to a parapelvic cyst. There is suggestion of a isointense filling defect at the ureteropelvic junction with edema around the UPJ. The distal ureter is decompressed. There is no stone in the kidney or ureter. A retrograde ureterogram can be considered for further assessment. Compared with urinalysis. 2. The left inguinal hernia contains fat extending from the pararenal fat extending inferiorly into the hernia. This critical result was discussed with Dr. Lopez on 07/05/2017, 9:20 PM and it was ascertained that the content and urgency of the report was understood at the time of direct communication.
== END 2017-07-05 22:14 ==
LOC: ERH 13:17
PROVIDERS: Emergency Medicine
DX: R10.9 Unspecified abdominal pain (principal); R11.0 Nausea
CPT/HCPCS: 74176; 74177; 81001; 93005; 93010; 96374; J1885

== ENCOUNTER → 2017-07-19 | Day surgery (SDC) | payer OTHER, MEDICARE ==
[~2017-07-19] VITALS: Ht 167.6 cm; Wt 82.6 kg
[~2017-07-19] MED LIST changes: +AMARYL1 M1 PO; +AMLODIPINE BESY10 M1 PO; +GLYBURIDE2.5 M1 PO; +TIMOLOL MALEATE5 M4 OPH
--- NOTE | 2017-07-19 11:07 | Operative Report ---
Operative/Inv Procedure Report Surgery Date: 07/19/17 Name of Procedure: cystoscopy: left flex. ureteroscopy, retrograde pyelogram, left stent placement. Laser standby Pre-Operative Diagnosis: left hydro suspected stone Post-Operative Diagnosis: no stone, scattered ureter strictures Estimated Blood Loss: scant Surgeon/Handhole Machine Operator: Nilesh Roche MD Anesthesia: moderate sedation Drains: none Complications: none Operative/Procedure Note Note: The patient was taken to the operating room and placed on the OR table in supine position. Timeout was performed, with the patient awake, in order to confirm correct patient, procedure, laterality, and other pertinent marleen-operative information. After adequate anesthesia and antibiotics, the patient was then placed in lithotomy stirrups, draped and prepped in the usual surgical fashion. A 22 [place] cystoscope sheath with 30 angle lens was inserted into the bladder without difficulty. Upon entering the bladder, the bladder was noted to be free of tumor, free of stone. Both orifices were in their orthotopic position. The left ureter orifice was intubated with an 8fr cone-tip catheter, and a retrograde pyelogram, with fluoroscopy, was performed revealing mid ureter filling defect, consistent with ureter stricture. The cone-tipped catheter was removed. This was followed by insertion of a 0.035 Glidewire, which was advanced into the left renal pelvis without difficulty. Placement of the wire was confirmed with fluoroscopy. Leaving the Glidewire in place, the flexible ureteroscope was railroaded over the gluidewire, and followed the wire into the bladder, up the ureter, and into the left renal pelvis, with fluoroscopy visualization. Pyeloscopy and calyxoscopy of the upper, middle, and lower poles reveal no evidence of tumor, and no stone. As the ureteroscope was extracted along the ureter strictures were seen and relatively open. NO stones, nor any tumor was visualized on the way out. The bladder was then drained after the ureteroscope was removed. The 22 [place] cystoscope sheath with a 30 angle lens was then inserted once again into the bladder. The left orifice was clearly visible, and was intubated with a 0.035 Glidewire. The Glidewire was advanced into left renal pelvis without difficulty. A 6 x 22 [place] onlay stent was railroaded over the Glidewire , and advanced into the left ureter and renal pelvis without difficulty. With fluoroscopic visualization of the proximal coil in the renal pelvis, and the distal coil visualized cystoscopically in the bladder, the Glidewire was removed and the stent remained in proper place. The bladder was then drained and the cystoscope was removed. Urojet was instilled into the urethra and clamped there for 5 minutes. All sponge needle and instrument count were correct at the end of the case. The patient tolerated the procedure well, and was then taken to the recovery room in satisfactory condition. The patient is to follow up in 2-4 weeks time after discharge from the recovery room. Discharge Disposition: Same Day Admissions CC: Melchor STREETER,Nilesh
--- NOTE | 2017-07-19 15:03 | RADIOLOGY REPORT ---
EXAMINATION: XR ABDOMEN CLINICAL INDICATION: 82-year-old male for left-sided ureteroscopy and left-sided stent placement. COMPARISON: CT of the abdomen and pelvis done on 07/05/2017. TECHNIQUE AND FINDINGS: C-arm fluoroscopic assistance is provided at the time of the left-sided ureteroscopy and stent placement. Multiple spot radiographs were obtained at the time of the procedure. A total of 18 spot radiographs were obtained at the time of the procedure. Fluoroscopy time: 0.4 minutes. IMPRESSION: C-arm fluoroscopic assistance is provided at the time of left-sided ureteroscopy and left-sided stent placement. Full procedural detail will be dictated by Dr. Roche, the performing surgeon.
== END ==
LOC: STS 03:21
DX: N13.1 Hydronephrosis with ureteral stricture, not elsewhere classified (principal); I10 Essential (primary) hypertension; E11.9 Type 2 diabetes mellitus without complications; Z79.84 Long term (current) use of oral hypoglycemic drugs; I25.10 Atherosclerotic heart disease of native coronary artery without angina pectoris
CPT/HCPCS: 74018; C2617